=== PATIENT | female | born 1995 | race African-American/Black ===

== ENCOUNTER 2019-06-27 23:57 | Emergency (ER) | payer SELFPAY ==
[~2019-06-27] VITALS: Ht 162.6 cm; Wt 69.2 kg
[~2019-06-27 23:57] MED LIST: CIPR500T PO; CITA10TA8 PO; DOXY100C2 PO; LORA0.5T96 PO; NAPR-514 PO; PHEN-318 PO
--- NOTE | 2019-06-28 | PHYS DOC ---
Past History Past Medical History: Anxiety, Bipolar, Depression Additional Past Medical Histor: Seasonal allergies. Staph infection in left axilla. Back pain 03/11/2013. Past Surgical History: No Surgical History Smoking: Non-smoker Alcohol Use: Heavy Drug Use: None, Marijuana, Methamphetamine Adult General Chief Complaint Chief Complaint: ".. I feel like I am having an allergic reaction.. maybe I drank something with Norris juice in it. ... or something as set me off.. I am allergic to all kinds of fruits.. and different things ".. HPI HPI Patient is a 23 year old female who presents with above hx and complaints of allergic reaction. Pt. thinks she took something that made her have an allergic reactions. Patient states she is allergic to penicillin and Benadryl. Patient states many foods give her allergy-like symptoms persist specifically fruits. Patient does have a history of anxiety, bipolar, depression. Patient reports she is up-to-date with vaccinations. Did receive flu vaccination this season. No recent travel outside at [facility].. No significant ill contacts. Follows with Dr. Valero. Review of Systems Review of Systems Constitutional: Denies fever or chills [] Eyes: Denies change in visual acuity, redness, or eye pain [] HENT: Denies nasal congestion or sore throat [] Respiratory: Denies cough or shortness of breath [] Cardiovascular: No additional information not addressed in HPI [] GI: Denies abdominal pain,, vomiting, bloody stools or diarrhea . The [patient]complaints of nausea : Denies dysuria or hematuria [] Musculoskeletal: Denies back pain or joint pain [] Integument: Denies rash or skin lesions [] Neurologic: Denies headache, focal weakness or sensory changes [] Endocrine: Denies polyuria or polydipsia [] All other systems were reviewed and found to be within normal limits, except as documented in this note. Family History Family History Noncontributory to presentation Current Medications Current Medications See nursing for home meds Allergies Allergies Allergies Coded Allergies Type Severity Reaction Last Updated Verified diphenhydramine HCl Allergy Intermediate hives 03/11/13 Yes amoxicillin Adverse Reaction Mild yeast infection. 03/11/13 Yes Physical Exam Physical Exam Constitutional: Very anxious, distress about CO 19, twitching in appearance. [] HENT: Normocephalic, atraumatic, bilateral external ears normal, oropharynx moist, no oral exudates, nose normal. [] Eyes: PERRLA, EOMI, conjunctiva normal, no discharge. [] Neck: Normal range of motion, no tenderness, supple, no stridor. [] Cardiovascular: Tachycardia Heart rate regular rhythm, no murmur [] Lungs & Thorax: Bilateral breath sounds equal at apex on auscultation [] Abdomen: Bowel sounds normal, soft, no tenderness, no masses, no pulsatile masses. [] Skin: Warm, dry, no erythema, no rash. [] Back: No tenderness, no CVA tenderness. [] Extremities: No tenderness, no cyanosis, no clubbing, ROM intact, no edema. [] Neurologic: Alert and oriented X 3, normal motor function, normal sensory function, no focal deficits noted. [] Psychologic: Affect anxious, judgement normal, mood normal. [] EKG EKG [] Radiology/Procedures Radiology/Procedures [] Course & Med Decision Making Course & Med Decision Making Pertinent Labs and Imaging studies reviewed. (See chart for details) Patient's stay on clear fluid diet for the next 2 days. Push Pedialyte. Avoid illicit drugs. Follow-up primary care. Command patient self quarantine. No travel, avoid crowds. Follow-up CDC for updates on recommendation on CO 19. Impression: 1. Allergic Reaction 2. Hypokalemia 3.0 3. Elevated CK 1406 4. Drug Screen + for Meth. 5. Mild Dehydration. [] Dragon Disclaimer Dragon Disclaimer This electronic medical record was generated, in whole or in part, using a voice recognition dictation system. Departure Departure: Disposition: 01 HOME/RESIDENCE PRIOR TO ADM Condition: STABLE Referrals: SARAH VALERO DO (PCP) Josie Disclaimer This chart was dictated in whole or in part using Voice Recognition software in a busy, high-work load, and often noisy Emergency Department environment. It may contain unintended and wholly unrecognized errors or omissions. ANA MARIA HAN MD Jun 28, 2019 00:00
[2019-06-28] MEDS ORDERED: IPRATRPIUM/ALBUTEROL 0.5/2.5MG 3 ML NEBU. NEB ONE (00:15)
[2019-06-28] MEDS ORDERED: FAMOTIDINE 20 MG/2 ML VIAL IVP ONE (00:15)
[2019-06-28] MEDS ORDERED: IV RINGERS SOLUTION,LACTATED 1,000 ML IV ONE ×2 (00:15→02:00)
[2019-06-28] MEDS ORDERED: methylPREDNISolone SOD SUCC PF 125 MG/2 ML VIAL. IV ONE (00:15)
[2019-06-28] MEDS ORDERED: MAGNESIUM HYDROXIDE 2,400 MG/30 ML ORAL.SUSP. PO ONE (00:30)
[2019-06-28 00:33] LABS: BASO % 0 % (0-3); EOS % 0 % (0-3); HEMATOCRIT 38.5 % (36.0-47.0); HEMOGLOBIN 12.6 g/dL (12.0-15.5); LYMPH # 2.3 x10^3/uL (1.0-4.8); LYMPH % 24 % (24-48); MEAN CORPUSCULAR HEMOGLOBIN 26 pg (25-35); MEAN CORPUSCULAR HGB CONC 33 g/dL (31-37); MEAN CORPUSCULAR VOLUME 81 fL (79-100); MONO # 0.8 x10^3/uL (0.0-1.1); MONO % 8 % (0-9); NEUT # 6.5 x10^3uL (1.8-7.7); NEUT % 67 % (31-73); PLATELET COUNT 321 x10^3/uL (140-400); RED BLOOD COUNT 4.75 x10^6/uL (3.50-5.40); RED CELL DISTRIBUTION WIDTH 14.4 % (11.5-14.5); WHITE BLOOD COUNT 9.6 x10^3/uL (4.0-11.0)
[2019-06-28 00:58] LABS: CALCIUM 10.1 mg/dL (8.5-10.1); CREATININE 1.1 mg/dL (0.6-1.0); GFR 73.8
[2019-06-28 01:13] LABS: ALBUMIN 4.5 g/dL (3.4-5.0); DIRECT BILIRUBIN 0.2 mg/dL (0.0-0.2); MAGNESIUM 1.9 mg/dL (1.8-2.4); TOTAL PROTEIN 8.5 g/dL (6.4-8.2)
[2019-06-28] MEDS ORDERED: POTASSIUM CHLORIDE 20 MEQ TABLET.ER. PO ONE (01:45)
[2019-06-28] MEDS ORDERED: SODIUM BICARB ADULT 8.4% 50 MEQ/50 ML DISP.SYRIN. IV ONE (02:00)
--- NOTE | 2019-06-28 02:41 | EKG ---
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
[2019-06-28] MEDS ORDERED: SODIUM BICARBONATE 50 MEQ/50 ML VIAL. ONE (02:51)
[2019-06-28 03:05] LABS: U PREG PATIENT NEGATIVE (NEG)
[2019-06-28 03:07] LABS: AMPHETAMINE/METHAMPHETAMINE POS (NEG); BARBITURATES NEG (NEG); BENZODIAZEPINES NEG (NEG); CANNABINOIDS NEG (NEG); COCAINE NEG (NEG); METHADONE NEG (NEG); OPIATES NEG (NEG); PHENCYCLIDINE NEG (NEG)
[2019-06-28 03:09] LABS: CLARITY,URINE CLEAR; COLOR,URINE YELLOW
[2019-06-28 03:10] LABS: BACTERIA,URINE 0 /HPF (0-FEW); BILIRUBIN,URINE NEG (NEG); GLUCOSE,URINE NEG (NEG); NITRITE,URINE NEG (NEG); RBC,URINE 0 /HPF (0-2); SQUAMOUS EPITHELIAL CELL,UR OCC /LPF; UROBILINOGEN,URINE 0.2 mg/dL (0.2 mg/dL); WBC,URINE RARE /HPF (0-4)
[2019-06-28 03:59] LABS: ACETAMIN 21.6 mcg/mL (10-30); SALIC 0.7 mg/dL (2.8-20.0)
[2019-06-28 04:22] VITALS: BP 148/93
== END 2019-06-28 04:24 | disposition home or self-care (01) ==
LOC: ER 23:57
DX: T78.40XA Allergy, unspecified, initial encounter (principal); E87.6 Hypokalemia; R79.89 Other specified abnormal findings of blood chemistry; E86.0 Dehydration; F15.10 Other stimulant abuse, uncomplicated; F12.10 Cannabis abuse, uncomplicated; F41.9 Anxiety disorder, unspecified; F31.9 Bipolar disorder, unspecified; Z88.1 Allergy status to other antibiotic agents; Z88.8 Allergy status to other drugs, medicaments and biological substances; X58.XXXA Exposure to other specified factors, initial encounter
CPT/HCPCS: 36415; 80048; 80076; 80307; 80329; 81001; 81025; 82550; 83735; 84443; 84484; 85025; 85610; 85730; 93005; 94640; 96361; 96372; 96374; 96375; 99285; G0480; J2060; J2930; J3490; J7120; 82003; 99284-25